=== PATIENT | female | born 1960 | race Caucasian/White ===

== ENCOUNTER 2017-01-23 19:15 | Inpatient (IN) ==
[2017-01-23 19:51] LABS: URINE MICRO REVIEW NEEDED? NO; URINE SOURCE CLEAN CATCH
[2017-01-23 20:02] LABS: BILIRUBIN URINE NEGATIVE (NEGATIVE); BLOOD URINE NEGATIVE (NEGATIVE); COLOR YELLOW; GLUCOSE URINE NEGATIVE (NEGATIVE); LEUKOCYTES URINE TRACE (NEGATIVE); NITRITE URINE NEGATIVE (NEGATIVE); PROTEIN URINE TRACE mg/dL (NEGATIVE); SP GRAVITY URINE 1.025; TURBIDITY URINE HAZY (CLEAR); UR EPITHELIAL CELLS >10 /HPF (<10); URINE BACTERIA 2+ /HPF; URINE CULTURE NEEDED? YES; URINE RBC <10 /HPF (<10); URINE WBC <10 /HPF (<10); UROBILINOGEN URINE NORMAL (NORMAL)
[2017-01-23] MEDS ORDERED: ASPIRIN PO STA (20:03)
[2017-01-23] MEDS ORDERED: NS 1,000 ML IV ONE ×2 (20:03→21:02)
--- NOTE | 2017-01-23 20:31 | Diag Imaging Result Doc PS360 ---
EXAM: CHEST-PORTABLE HISTORY: chest pain TECHNIQUE: AP upright portable at 2009 COMMENT: considering differences in technique there is been no significant change since 07/22/2015. The heart size is at the upper limits of normal. IMPRESSION: Borderline cardiomegaly. Electronically signed by Cesario Eric 01/23/2017 8:28 PM
[2017-01-23 20:37] LABS: MANUAL DIFF NEEDED? NO
[2017-01-23 20:39] LABS: BASO% 0.3 % (0.0-0.8); EOS# 0.24 X1000 (0.0-0.7); EOS% 1.9 % (0.0-10.0); HEMATOCRIT 34.6 % (37.0-47.0); HEMOGLOBIN 11.3 g/dL (12.0-16.0); IMM GRAN# 0.08 X1000 (0.0-0.04); IMM GRAN% 0.6 % (0.0-0.5); LYMPH# 3.41 X1000 (1.2-3.4); MCH 30.1 PG (27-31); MCHC 32.7 g/dL (33-37); MCV 92.3 FL (81-99); MONO# 0.93 X1000 (0.11-0.59); MONO% 7.4 % (1.7-9.3); MPV 11.5 FL (7.4-10.4); NEUT% 62.8 % (42.2-75.2); PLT 252 X1000 (130-400); RBC 3.75 XMIL (4.2-5.4)
[2017-01-23 20:49] LABS: INR 0.98; PROTIME 10.3 Seconds (9.2-11.7); PTT 28.1 Seconds (22.0-36.0)
[2017-01-23 20:52] LABS: ALBUMIN 3.9 g/dL (3.5-5.0); CALCIUM 8.5 mg/dL (8.8-10.2); POTASSIUM 4.4 mmol/L (3.5-5.1); TOTAL BILIRUBIN 0.27 mg/dL (0.20-1.00); TOTAL PROTEIN 5.8 g/dL (6.3-8.3)
--- NOTE | 2017-01-23 22:09 | Diag Imaging Result Doc PS360 ---
EXAM: ABDOMEN/PELVIS W/O CONTRAST HISTORY: abdominal pain, hypotension TECHNIQUE: CT urogram without contrast COMMENT: There are no previous studies available for comparison. There are increased interstitial opacities in the costophrenic sulci which may be due to fibrosis or edema. There are no gallstones. There are no renal stones. There is no evidence of bowel obstruction. The appendix is normal in appearance. There is no evidence of abdominal aortic aneurysm. There is no evidence of hydronephrosis or urolithiasis. There are numerous sigmoid diverticula. No evidence of acute diverticulitis is present. No free fluid or free air is present. Mild degenerative facet disease is present in the lumbar spine. IMPRESSION: No evidence of stones or obstruction. Questionable interstitial pulmonary edema. Electronically signed by Cesario Eric 01/23/2017 10:07 PM
[2017-01-23] MEDS ORDERED: ROCEPHIN 1 GM/NS 1 GM/50 ML IVPB IV ONE (22:53)
--- NOTE | 2017-01-23 23:35 | PROVIDER DOCUMENTATION ---
This chart was entered by John Paul Clayton Scribe, acting as scribe for Alan Figueroa MD. HPI-Abdominal Pain/GI Problem - General Chief Complaint: Chest Pain Stated Complaint: CP Time Seen by Provider: 01/23/17 19:44 Source: patient Allergies/Adverse Reactions: Patient Allergies Allergy/AdvReac Type Severity Reaction Status Date / Time fentanyl Allergy SWELLING Verified 01/23/17 20:13 Penicillins Allergy RASH Verified 01/23/17 20:13 Home Medications: Home Medication List Medication Instructions Recorded Confirmed Last Taken Type Lisinopril 20 mg PO DAILY 07/22/15 03/23/16 03/23/16 History Escitalopram Oxalate [Lexapro] 10 mg PO DAILY 12/05/15 03/23/16 03/23/16 History Prednisone 10 mg PO DIRECTED #9 tablet 02/27/16 03/23/16 Unknown Rx Methocarbamol [Robaxin-750] 750 mg PO TID #30 tablet 03/01/16 03/23/16 Unknown Rx Cyclobenzaprine [Flexeril] 10 mg PO TID PRN #20 tablet 03/23/16 Unknown Rx Hydrocodone/Acetaminophen [Pe Ell 10 mg PO PRN PRN 03/23/16 03/23/16 03/23/16 History 10-325 Tablet] - History of Present Illness-ABD Nature of Presenting Problems: Pt is a 56 yowf who presents to ER with CC 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 Pt states that she has been taking rx for hypertension for the past five years. PT complains of nausea without vomiting or diarrhea, chest pain (starts as sharp/stabbing then turns to a dull ache/soreness), with mild shortness of breath. Pt reports a mildly productive cough (brown/yellow sputum) . Pt's states that pt's B/P was 79/39 at home with a B/P of 80/50 in ED. On exam, pt was moderately lethargic, slow to respond, and fatigued. Abdominal Pain Onset Location: reports: periumbilical (substernal) Pain Radiation: reports: no radiation Quality of Pain: reports: aching, dull, sharp, stabbing Severity in ED: reports: moderate Onset/Duration: reports: 1 hour ago Timing: reports: still present Associated Symptoms: reports: arm pain, chest pain, cough, dizziness, nausea, shortness of breath, weakness. denies: anxiety, back/neck pain, diaphoresis, headaches, heartburn, joint pain, loss of appetite, muscle aches, rash, syncope , vomiting Dark Stools Present?: reports: none noticed Rectal Bleeding: reports: none Rectal Pain: reports: none Emesis Description: reports: none Review of Systems - Adult - REVIEW OF SYSTEMS - ADULT Constitutional: denies: chills, fever, fatique, night sweats, weight gain, weight loss Eyes: reports: no symptoms reported Ears, Nose, Mouth & Throat: reports: no symptoms reported Cardiovascular: reports: chest pain, other (hypotension). denies: edema, heart murmur, irregular heart rate, orthopnea, palpitations, poor circulation, PND, syncope Respiratory: reports: chronic cough, cough, excessive sputum production, shortness of breath. denies: dyspnea on exertion, hemoptysis, pleurisy, wheezing Gastrointestinal: reports: abdominal pain, nausea. denies: hematemesis, constipation, diarrhea, difficulty swallowing, frequent heartburn, poor appetite , rectal bleeding, vomiting Genitourinary: reports: no symptoms reported Musculoskeletal: reports: no symptoms reported Integumentary: reports: no symptoms reported Neurological: reports: dizziness/vertigo. denies: ataxia, headache/migraines, loss of balance, numbness, paresthesia, seizure, slurred speech, syncope, tremors Psychiatric: reports: no symptoms reported Endocrine: reports: no symptoms reported Hematologic/Lymphatic: reports: no symptoms reported Allergic/Immunologic: reports: no symptoms reported All Other Systems: Reviewed and Negative Past History - Adult - PAST MEDICAL HISTORY-ADULT Review of Records: reports: Nursing Assessment Review, Medications Reviewed Cardiovascular: reports: HTN Gastrointestinal: reports: GERD Psychiatric: reports: depression, ptsd - PRIOR SURGERIES/PROCEDURES Surgical/Procedure History: reports: BTL, other (vocal cord) - IMMUNIZATION STATUS Childhood Immunizations: See Nurse Assessment Flu Vaccine: See Nurse Assessment - FAMILY HISTORY Family History: reviewed, not pertinent Physical Exam-General - PHYSICAL EXAM-ADULT Initial Vital Signs Reviewed: Yes - CONSTITUTIONAL General Appearance: appears well, alert, mild distress, obese, lethargic, slow to respond - EYES Eyes: PERRL/EOMI, pink conjunctivae - HEAD, EARS, NOSE, MOUTH & THROAT HENMT: normocephalic/atraumatic, moist mucous membranes, normal ENT inspection, TMs normal, pharynx normal. negative: pharyngeal erythema, tonsillar exudate, TM abnormal - NECK Neck: non-tender, full range of motion, supple, normal inspection. negative: C- spine tenderness, limited range of motion, lymphadenopathy - RESPIRATORY Respiratory: chest non-tender, no pleuratic chest pain, decreased breath sounds , wheezing (scattered wheezing). negative: lungs clear, normal breath sounds - CARDIOVASCULAR Cardiovascular: normal peripheral pulses, regular rate, rhythm, other ( hypotensive (80/53)). negative: bradycardia, tachycardia, irregularly irregular - GASTROINTESTINAL (ABDOMEN) Abdominal Exam: normal bowel sounds, soft, no organomegaly, no pulsatile mass, tenderness (periumbilical/substernal). negative: non tender - MUSCULOSKELETAL Back Exam: normal inspection, no CVA tenderness, no vertebral tenderness. negative: CVA tenderness, vertebral tenderness Extremity: normal range of motion, non-tender, normal gait, normal inspection, normal capillary refill, calf tenderness (bilateral), swelling (2+ ankle edema) . negative: no pedal edema, no calf tenderness, deformity, erythema, inflammation - SKIN Integumentary: normal color, normal turgor, warm/dry. 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 negative: facial droop, focal weakness, motor weakness, sensory deficit - PSYCHIATRIC Psych/Mental Status: normal thought content, normal thought process, oriented x 3, depressed affect. negative: normal mood/affect Progress - PLAN OF CARE/RESULTS Progress/Plan/Lab Results: Vital Signs - 8 hr 01/23/17 19:25 Temperature 97.4 F L Pulse Rate 64 Respiratory Rate 18 Blood Pressure 91/52 O2 Sat by Pulse Oximetry 98 Laboratory Results - last 24 hr 01/23/17 19:44 Urine Source CLEAN CATCH Orders Category Date Time Status CK PROFILE [SP CHEM] Stat Lab 01/23/17 19:29 Received TROPONIN T Stat Lab 01/23/17 19:29 Received URINALYSIS W/POSS RFLX CULT [URINALYSIS] Stat Lab 01/23/17 19:44 Results EKG [EKG] Stat Ther 01/23/17 19:21 Ordered EKG [EKG] Stat Ther 01/23/17 19:23 Ordered Result Diagrams: 01/23/17 20:23 01/23/17 20:23 - EKG 1 Time of EKG reading by physician:: 19:24 EKG Read and Signed by:: Alan Figueroa EKG Interpretation (*Must complete 3 of following elements*): Normal Rate: 63 Rhythm: NSR - XRAY 1 XRAY: Bilateral XRAY Study: Chest Impression: See EMR Report Comparison with other Films: no changes (07/22/2016) XRAY Interpretation: Borderline Cardiomegaly, no infiltrates - Dr. Eric ( Radiologist) - CT/MRI 1 CT Study: Abdomen, Pelvis Impression: See EMR Report (No evidence of stones or obstruction. Questionable interstitial pulmonary edema - Dr. Eric (Radiologist)) CT Results: See report - CONSULTS/PCP/HOSPITALIST Notification #1 *Consult/PCP/Hospitalist*: Dr. Taylor (Hospitalist) Time Discussed: 23:30 Consult Disposition: Admit Departure - Departure Time of Disposition Decision: 22:50 DIAGNOSIS: Orthostatic hypotension, Bronchitis Chest pain Qualifiers: Chest pain type: unspecified Qualified Code(s): R07.9 - Chest pain, unspecified Disposition: ADMITTED INPATIENT 09 Certified Medical Emergency: Emergent Condition: Stable Additional Freetext Instructions: ED Follow Up Instructions: You have been treated by a care provider in the Emergency Department. These instructions are being provided to you so you can have an understanding of how to care for yourself upon discharge. Upon discharge from the Emergency Department, you are responsible for making arrangements for follow-up care by a physician of your choice. Take all prescribed medications as directed. Return to the Emergency Department immediately for any new or worsening symptoms. You may call the Physician Referral phone number at [phone] to obtain a list of Physicians who are taking new patients. Referrals and Follow-Ups: Fred Ma MD [Primary Care Provider] - - Critical Care Note This patient required my direct & personal management of CC.: No This chart was documented by the indicated scribe, (John Paul Clayton Scribe) and accurately reflects the services I performed and decisions made by me, Alan Figueroa MD, as attested by the provider's signature.
[2017-01-23] MEDS ORDERED: PERCOCET-10 PO ONE (23:53)
--- NOTE | 2017-01-24 02:36 | HISTORY AND PHYSICAL ---
PRIMARY CARE PROVIDER: KISHA Man REASON FOR ADMISSION: A 1-day history of lightheadedness and generalized weakness. HISTORY OF PRESENT ILLNESS: Ms Melissa Lemos is a 56-year-old lady with past medical history of COPD and hypertension who recently underwent a stress test 2 days ago for chest pain. This was found to be negative. An echo also done around that time was essentially normal. She comes in today complaining of lightheadedness and generalized weakness about 4-6 weeks after her blood pressure medication lisinopril 20 mg was changed Prinzide 20/25 mg daily. She denies any bleeding from any orifice. No nausea, vomiting, or diarrhea. She says this morning she could hardly get out of bed and when she stood up, she felt profoundly lightheaded and had to sit down. Her symptoms improved only a little bit when she sat down. Her who was nearby took her blood pressure and it was 79/47. He decided to bring her to the ER. On arrival to the ER blood pressure was in the 70s and she has since received about 2 L of normal saline. Blood pressure is now 120/60. The patient admit to having intermittent chest pain during this episode of palpitations with diaphoresis and mild nausea. No antecedent history of lower extremity pain or redness. The patient has had chronic lower extremity swelling from use of Lyrica. No PND or orthopnea. No fever but she has had a chronic cough, which has been worse and the weight loss. No focal weakness, numbness or tingling. REVIEW OF SYSTEMS: Twelve system review is negative. Positive findings as per HPI. ALLERGIES: Fentanyl and Penicillin. MEDICATIONS: Home medications include: 1. Prinzide 20/25 mg daily. The patient did not bring a home medication list, so I cannot verify the rest of the medications with any certainty but she does take ProAir 2 puffs p.r.n. SURGICAL HISTORY: Tubal ligation. Vocal cord nodule removal. SOCIAL HISTORY: She smokes about 1-1/2 packs a day. No alcohol or illicit drug use. Lives with her . FAMILY HISTORY: Notable for diabetes. No heart disease in first-degree relatives. LABORATORY WORK: White count 21403, hemoglobin and hematocrit 11 and 34, platelets 252,000, with normal differential. BUN 34, creatinine 1.0 which is her baseline, glucose 155. CK troponin normal. ProBNP and lactate are both normal. PT/PTT normal. D-dimer 0.65. Urinalysis 2+ bacteria but [address] and chest x-ray essentially normal except for questionable mild interstitial edema and diverticulosis. EKG just showed normal sinus rhythm with no ST-T wave changes of note. REVIEW OF SYSTEMS: Longstanding history of chronic nausea and she is actually complaining of low back pain which is chronic also. PHYSICAL EXAMINATION: VITAL SIGNS: Blood pressure 133/99, heart rate 62, temperature 97.4 degrees, respirations 14. GENERAL: Middle-aged obese woman, who is not in acute distress. She is A and O x3. Normal mood and affect. HEENT: Head is normocephalic, atraumatic. Eyes, DAVID EOMI. She is anicteric and not pale. ENT: Exam is grossly normal. No cyanosis. NECK: Short and thick. No JVD or carotid bruit. No thyromegaly. CHEST: Decreased entry in both lung martin with scattered wheezes. No crepitations. CARDIOVASCULAR: First and second heart sounds were heard but distant. Rhythm is regular. No murmurs appreciated. ABDOMEN: Protuberant soft, nontender. No masses or megaly. Bowel sounds are normal. RECTAL: Deferred at this time. EXTREMITIES: No edema, clubbing or cyanosis. Pulses distally in all extremities have good volume and are symmetrical. No edema. NEUROLOGICAL: No focal deficits. SKIN: Intact. No breakdown or lesions or erythema. Serial exams are grossly normal. ASSESSMENT: 1. Symptomatic hypotension secondary to intravascular volume depletion with concomitant use of antihypertensives. 2. Acute kidney injury secondary to #1. 3. Chronic obstructive pulmonary disease. 4. Tobacco use. PLAN: At this time, we will continue with IV hydration in this patient. Because of her intermittent use of steroids it will be prudent to rule out adrenal insufficiency. The patient appears to have mild persistent COPD and I will give a 1 time dose of Decadron because this would not interfere with any potential adrenal investigative studies. Do nebulizer treatments and consider long-acting bronchodilators in addition to short-acting bronchodilators. Will hold all blood pressure medications for now. Follow BMP in the a.m. to document objective improvement of her renal function. The patient would probably need to be on another antihypertensive or at least a lower dose of lisinopril in light of these recent events. The patient's intermittent, chronic chest pain is probably nonischemic in nature based on a negative stress test done 2 days ago. Smoking cessation was reiterated. The patient does not have any immediate plans to quit at this time. cc: Enrico Taylor MD
[2017-01-24] MEDS ORDERED: DECADRON IV ONE (02:58)
[2017-01-24] MEDS ORDERED: ZOFRAN IV PRN (02:58)
[2017-01-24] MEDS ORDERED: NS 1,000 ML IV SCH (02:58)
[2017-01-24] MEDS ORDERED: DUONEB (A & A) INH SCH (04:00)
[2017-01-24] MEDS ORDERED: LOVENOX ONE (04:23)
[2017-01-24] MEDS ORDERED: NS 1,000 ML ONE (04:23)
[2017-01-24] MEDS: LOVENOX SUBQ SCH (04:25)
[2017-01-24] MEDS: NORCO-5 PO PRN ×3 (07:30→19:22)
[2017-01-24] MEDS ORDERED: PNEUMOVAX 23 IM ONE (07:31)
[2017-01-24 08:49] LABS: CALCIUM 8.8 mg/dL (8.8-10.2); POTASSIUM 4.8 mmol/L (3.5-5.1)
[2017-01-24] MEDS: DUONEB (A & A) INH SCH ×4 (11:15→22:42)
[2017-01-25] MEDS: NORCO-5 PO PRN ×4 (02:35→21:44)
[2017-01-25] MEDS: LOVENOX SUBQ SCH (02:35)
[2017-01-25] MEDS: DUONEB (A & A) INH SCH ×6 (02:49→23:04)
[2017-01-25 03:03] LABS: ALLEN TEST YES; BE 1.9 mmoll (-3.0-3.0); BLOOD TYPE ARTERIAL; DRAW SITE R RADIAL; METHB 1.2 % (0.0-1.5); O2(CT) 15.6 mL/dL (15.0-23.0); PCO2(98.6) 36 mmHg (35-45); PO2(98.6) 91 mmHg (60-100); SAMPLE BLOOD; SAO2 98.3 % (95.0-100.0); THB 11.5 g/dL (11.5-17.4); pH(98.6) 7.46 (7.35-7.45)
[2017-01-25 03:04] LABS: MODALITY ROOM AIR
[2017-01-25 05:35] LABS: MANUAL DIFF NEEDED? NO
[2017-01-25 05:45] LABS: BASO% 0.1 % (0.0-0.8); EOS# 0.01 X1000 (0.0-0.7); EOS% 0.1 % (0.0-10.0); HEMATOCRIT 34.6 % (37.0-47.0); HEMOGLOBIN 11.5 g/dL (12.0-16.0); LYMPH# 2.27 X1000 (1.2-3.4); LYMPH% 23.7 % (20.5-51.1); MCHC 33.2 g/dL (33-37); MCV 90.3 FL (81-99); MONO# 0.71 X1000 (0.11-0.59); MONO% 7.4 % (1.7-9.3); MPV 11.6 FL (7.4-10.4); NEUT% 67.7 % (42.2-75.2); PLT 253 X1000 (130-400); RBC 3.83 XMIL (4.2-5.4)
[2017-01-25 06:07] LABS: CALCIUM 9.3 mg/dL (8.8-10.2); POTASSIUM 4.1 mmol/L (3.5-5.1)
--- NOTE | 2017-01-25 06:16 | EKG Report ---
Test Performed on : 01/23/2017 7:24:35 PM Test Reason : cp Blood Pressure : / mmHG Vent. Rate : 063 BPM Atrial Rate : 063 BPM P-R Int : 186 ms QRS Dur : 090 ms QT Int : 426 ms P-R-T Axes : 069 032 018 degrees QTc Int : 435 ms Normal sinus rhythm. Normal ECG When compared with ECG of 27-FEB-2016 16:08, No significant change was found Unconfirmed Result
[2017-01-25] MEDS ORDERED: LEXAPRO PO ONE (11:21)
--- NOTE | 2017-01-25 13:58 | PROGRESS NOTE ---
DATE: 01/25/2017 SUBJECTIVE: This patient states that she is feeling better. She is not complaining of shortness of breath or dizziness, no headache, no chest pain. OBJECTIVE: Vital Signs: Temperature 97.6 degrees, pulse 69, respiratory rate 14, blood pressure 118/73, O2 saturation 99 on room air. HEENT: Head normocephalic. No trauma. PERRLA. Neck: Supple. No JVD. No masses, central trachea Chest: Decreased breath sounds globally. No crepitation. Cardiovascular: RRR. No murmurs. Abdomen: Soft, nontender, nondistended. No hepatosplenomegaly. Extremities: No edema. No clubbing. No cyanosis. Neurological: The patient is alert and oriented x3. No focal deficits. LABORATORY: WBC 9.5, hemoglobin 11.5, hematocrit 34.6, platelet 253,000, sodium 145, potassium 4.1, chloride 108, bicarbonate 24, BUN 26, creatinine 1.1, glucose 116, magnesium 2. ASSESSMENT AND PLAN: 1. Symptomatic hypotension, probably this is multifactorial. This patient came in with a little bit of dehydration and kidney injury, and also her cortisol level is really low. We reanimated this patient with fluids and she is better. We also stopped the blood pressure medication. We will continue to monitor. 2. I suspected adrenal insufficiency, cortisol level is 0.8 and I repeated today and it is 0.4. I ask for STIM, TSH, ACTH level. That lab work will be done tomorrow morning. We will continue to monitor this patient in the [facility] unit. As per the patient she has been using on and off steroids, but the last time that she took them was around 5 months ago. 3. Acute kidney injury. It looks like this is her baseline, improved. 4. Chronic obstructive pulmonary disease, continue with the same management. 5. Tobacco abuse. This patient has been highly advised against tobacco use and I will continue with daily cessation education. CRITICAL CARE TIME: 35 minutes. cc: Chester Dougherty MD
--- NOTE | 2017-01-25 14:39 | Diag Imaging Result Doc PS360 ---
EXAM: CHEST-2 VIEWS INDICATION: dyspnea ? edema COMPARISON: 01/23/2017 FINDINGS: The lungs are grossly clear. There is no discrete pleural fluid collection. The cardiomediastinal silhouette and central vasculature are grossly unremarkable. IMPRESSION: No evidence of acute pathology. Electronically signed by Mo Lopez 01/25/2017 2:37 PM
[2017-01-25] MEDS ORDERED: PRILOSEC PO SCH (21:45)
[2017-01-26] MEDS: DUONEB (A & A) INH SCH ×2 (02:38→07:39)
[2017-01-26 04:55] LABS: MANUAL DIFF NEEDED? NO
[2017-01-26 04:58] LABS: BASO% 0.3 % (0.0-0.8); EOS# 0.08 X1000 (0.0-0.7); EOS% 0.9 % (0.0-10.0); IMM GRAN# 0.08 X1000 (0.0-0.04); IMM GRAN% 0.9 % (0.0-0.5); LYMPH# 3.05 X1000 (1.2-3.4); LYMPH% 34.2 % (20.5-51.1); MCH 30.2 PG (27-31); MCHC 33.3 g/dL (33-37); MCV 90.5 FL (81-99); MONO# 0.71 X1000 (0.11-0.59); NEUT% 55.7 % (42.2-75.2); PLT 268 X1000 (130-400); RBC 3.98 XMIL (4.2-5.4)
[2017-01-26 05:11] LABS: CALCIUM 9.3 mg/dL (8.8-10.2); POTASSIUM 4.1 mmol/L (3.5-5.1)
[2017-01-26] MEDS: NORCO-5 PO PRN (06:15)
[2017-01-26] MEDS: LOVENOX SUBQ SCH (06:15)
[2017-01-26] MEDS ORDERED: CORTROSYN IV ONE (08:04)
[2017-01-26] MEDS ORDERED: LEXAPRO PO SCH (09:00)
[2017-01-26 11:09] VITALS: BP 131/85
--- NOTE | 2017-01-26 16:44 | DISCHARGE SUMMARY ---
ADMISSION DATE: 01/24/2017 DISCHARGE DATE: 01/26/2017 CONSULTATIONS: None. PERTINENT PROCEDURES: Abdomen and pelvis CT showed no evidence of stone or obstruction. Questionable interstitial pulmonary edema. DISCHARGE DIAGNOSES: 1. Symptomatic hypotension multifactorial secondary to dehydration as well as low cortisol level. Improved. 2. Adrenal insufficiency. Cortisol level 0.8 and 0.4. Patient given a dose of Cortrosyn IV. Continue to follow up with PCP. 3. Acute kidney injury. Improved. 4. COPD mild exacerbation. Improved. 5. Tobacco abuse. Patient was educated daily on smoking cessation. HOSPITAL COURSE: Ms. Lemos is a 56-year-old female with a past medical history of COPD, hypertension, recently underwent a stress test two days prior to admission for chest pain. Found to be negative and echo was done and was essentially normal. The patient came into the ED complaining of lightheadedness and generalized weakness about 4-6 weeks after her blood pressure medications, lisinopril 20 mg was changed to Prinzide 20/25 mg daily. On the morning of her admission she could hardly get out of bed. When she stood up, she was profoundly lightheaded and had to sit down. Her symptoms were improved after some rest. She took her blood pressure at home and it was 79/47. She was brought to the ED where her blood pressure was still in the 70s. She did receive 2 L normal saline bolus. Blood pressure was back up to 120s over 60s. The patient admitted to having intermittent chest pain during this episode and palpitations with diaphoresis and mild nausea. The patient has had chronic lower extremity swelling from the use of Lyrica. No fever or chronic cough. No PND or orthopnea. The patient was admitted for symptomatic hypotension secondary to intravascular volume depletion with use of antihypertensive. Acute kidney injury. She was aggressively IV hydrated. She was given a dose of Decadron for her COPD as well as DuoNeb and aggressive pulmonary toilet. Smoking cessation was discussed daily with the patient but she does not have any immediate plans to quit any time soon. The patient was found to have a low cortisol level at 0.8 and 0.4, suspected adrenal insufficiency. The patient has been using steroids on and off. Her blood pressure medication has been held and I also checked a STIM, TSH and an ACTH level. She was given a dose of Cortrosyn this a.m. IV with instructions to follow up with her PCP. The patient's acute kidney injury resolved. Hemodynamically the patient has been stable. She was discharged this morning by Dr. Null. VITAL SIGNS: Temperature is 97.8 degrees, heart rate 68, respirations 18, blood pressure is 133/75, O2 is 100% on room air. DISCHARGE DIET: Healthy heart. DISCHARGE MEDICATIONS: As per Dr. Null. 1. Albuterol sulfate 18 g inhaled q.4 hours p.r.n. 2. Ciclopirox 15 g topical p.r.n. 3. Lexapro 10 mg p.o. daily. 4. Prilosec 40 mg p.o. daily. 5. Percocet 10/325, 1 each p.o. t.i.d. p.r.n. 6. Trazodone 150 mg p.o. at bedtime. 7. Tizanidine 4 mg p.o. p.r.n. FOLLOW-UP: Patient is being discharged home. She will need to follow up with her primary care physician, Dr. Ma, in 2 weeks with a BMP to recheck her renal function as well as cortisol levels. The patient can return to the ED for any worsening of symptoms. Discharge time 33 minutes. Dictated by KISHA Mosqueda for Rober Krishnamurthy MD cc: Rober Krishnamurthy MD MTDD
== END 2017-01-26 11:35 | disposition home or self-care (01) ==
LOC: ED 19:15 → SUATTDRO 01-24 00:45 → 3S 01-24 00:45
PROVIDERS: ATTEND Internal Medicine